=== PATIENT | male | born 2000 | race Caucasian/White ===

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

== ENCOUNTER 2019-01-07 13:53 | Emergency (ER) | END 2019-01-07 13:55 | disposition short-term general hospital (02) | LOC: FSED 13:53 | DX: R69 Illness, unspecified (principal) ==

== ENCOUNTER → 2019-01-13 | Emergency (ER) | END | disposition left against medical advice (07) | LOC: FSED 08:11 | DX: R69 Illness, unspecified (principal) ==

== ENCOUNTER 2019-01-22 13:31 | Emergency (ER) | payer SELFPAY | END 2019-01-22 13:35 | disposition short-term general hospital (02) | LOC: ER 13:31 | DX: Z53.21 Procedure and treatment not carried out due to patient leaving prior to being seen by health care provider (principal) ==

== ENCOUNTER → 2019-02-17 | Emergency (ER) | END | disposition left against medical advice (07) | LOC: FSED 11:52 | DX: R69 Illness, unspecified (principal) ==

== ENCOUNTER → 2019-02-18 | Emergency (ER) | END | disposition left against medical advice (07) | LOC: FSED 14:16 | DX: R04.2 Hemoptysis (principal) ==

== ENCOUNTER 2019-03-05 12:10 | Emergency (ER) | payer SELFPAY | END 2019-03-05 12:30 | disposition left against medical advice (07) | LOC: FSED 12:10 | DX: R19.7 Diarrhea, unspecified (principal) ==

== ENCOUNTER 2019-04-10 18:03 | Emergency (ER) | payer SELFPAY | END 2019-04-10 18:05 | disposition left against medical advice (07) | LOC: FSED 18:03 | DX: R69 Illness, unspecified (principal) ==

== ENCOUNTER → 2019-05-27 | Emergency (ER) | payer SELFPAY | END | disposition left against medical advice (07) | LOC: FSED 13:13 | DX: L60.0 Ingrowing nail (principal) ==

== ENCOUNTER → 2019-07-04 | Emergency (ER) | payer SELFPAY ==
[~2019-07-04] MED LIST: ONDANSETRON HCL INJ 2MG/ML 2ML 2 MG/ML VIAL ONE; PANTOPRAZOLE 40 MG 10ML VIAL ONE; SODIUM CHLORIDE 0.9% 1000ML 0 ML ONE
== END | disposition left against medical advice (07) ==
LOC: FSED 12:05
DX: R69 Illness, unspecified (principal)

== ENCOUNTER → 2019-07-04 | Emergency (ER) | payer SELFPAY | END | disposition left against medical advice (07) | LOC: FSED 17:57 | DX: R69 Illness, unspecified (principal) ==

== ENCOUNTER → 2019-08-13 | Emergency (ER) | payer SELFPAY ==
--- NOTE | 2019-08-13 12:40 | NUR ---
PT CAME INTO ER ASKING TO BE ADMITTED AND TRANSFERED IMMEDIATELY ACROSS THE STREET. PT STATED THE ER ACROSS THE STRE[address] WAS AT [facility] AND DR TORRES WAS GOING TO HAVE HIM DIRECTLY ADMITTED, I EXPLAINED TO PATIENT THAT WE DONT DO DIRECT ADMITS HERE BUT THAT WE WOULD BE HAPPY TO SEE HIM. PT STATED HE WANTED TO BE ADMITTED ACROSS THE STREET, I AGAIN EXPLAINED TO PATIENT THAT WE WOULD DO THE BEST WE COULD BUT AT THIS TIME I COULD NOT GUARANTEE THIS. PT TOLD ME IT WASNT AN OPTION TO GO ANYWHERE ELSE, I TOLD PT AGAIN WE WOULD BE HAPPY TO SEE HIM AND I WOULD DO MY BEST TO GET HIM ACROSS THE STREET. PT ASKED ME WHERE HE WOULD GO IF I COULD NOT GET HIM ACROSS THE STREET, I EXPLAINED THAT HE WOULD GO DOWNTOWN TO [facility] IN THE [facility] AND HE TOLD ME I COULD GO TO HELL, PT STATED HE WOULD ALSO RATHER GO TO HELL THAN TO GO DOWNTOWN, PT WAS EXTREMELY RUDE AND WAS YELLING.
== END | disposition left against medical advice (07) ==
LOC: FSED 12:30
DX: R69 Illness, unspecified (principal)

== ENCOUNTER 2019-08-15 10:03 | Emergency (ER) | payer SELFPAY | END 2019-08-15 10:04 | disposition short-term general hospital (02) | LOC: FSED 10:03 | DX: Z53.21 Procedure and treatment not carried out due to patient leaving prior to being seen by health care provider (principal) ==

== ENCOUNTER → 2019-10-03 | Emergency (ER) | payer SELFPAY | END | disposition home or self-care (01) | LOC: FSED 08:08 | DX: Z53.21 Procedure and treatment not carried out due to patient leaving prior to being seen by health care provider (principal) ==

== ENCOUNTER → 2019-10-16 | Emergency (ER) | payer SELFPAY | END | disposition left against medical advice (07) | LOC: FSED 17:16 | DX: R69 Illness, unspecified (principal) ==

== ENCOUNTER → 2020-01-04 | Emergency (ER) | payer SELFPAY | END | disposition left against medical advice (07) | LOC: FSED 22:14 | DX: Z53.21 Procedure and treatment not carried out due to patient leaving prior to being seen by health care provider (principal) ==

== ENCOUNTER → 2020-01-07 | Emergency (ER) | payer SELFPAY | END | disposition left against medical advice (07) | LOC: FSED 06:27 | DX: R69 Illness, unspecified (principal) ==

== ENCOUNTER → 2020-01-23 | Emergency (ER) | payer SELFPAY | END | disposition left against medical advice (07) | LOC: FSED 12:10 | DX: R69 Illness, unspecified (principal) ==

== ENCOUNTER 2020-01-28 11:16 | Emergency (ER) | payer SELFPAY ==
--- NOTE | 2020-01-28 11:18 | NUR ---
WANTED AN URGENT CARE CENTER.
== END 2020-01-28 11:19 | disposition left against medical advice (07) ==
LOC: FSED 11:16
DX: R69 Illness, unspecified (principal)

== ENCOUNTER 2020-02-01 06:32 | Emergency (ER) | payer SELFPAY | END 2020-02-01 06:50 | disposition left against medical advice (07) | LOC: FSED 06:32 | DX: R69 Illness, unspecified (principal) ==